=== PATIENT | male | born 1945 | race Hispanic/Latino ===

== ENCOUNTER 2018-01-15 13:58 | Observation (INO) | payer MEDICARE ==
[~2018-01-15] VITALS: Ht 162.6 cm; Wt 81.3 kg
[~2018-01-15 13:58] MED LIST: ABILIFY5 MG PO; ARICEPT10 M1 PO; ASPIRIN81 MG PO; B12 5,000 MCG1 EACH PO; BENEFIBER1 EAC1 PO; BUMETANIDE1 MG PO; CARVEDILOL3.125 MG PO; CARVEDILOL6.25 MG PO; DOCUSATE SODIU100 MG PO; FEROSUL325 MG PO; LISINOPRIL10 MG PO; POTASSIUM CHLO20 ME1; PRAVASTATIN SOD20 MG PO; QUETIAPINE FUMA25 MG PO; THIAMINE HCL100 MG PO; Z LOFIBRA PO; Z.0.COUMADIN5 MG PO; Z.0.HYDROCHLOROTHIA2 PO; Z.0.LISINOPRIL40 MG PO; Z.0.NAMENDA10 MG PO; Z.0.NORVASC10 MG PO; Z.0.PRAVASTATIN SOD4 PO; Z.0.PROZAC20 MG PO; Z.0.TOPROL XL50 MG PO; Z.0.WELLBUTRIN SR150 PO; vitamin B 12
[2018-01-15] MEDS ORDERED: ASPIRIN 81 MG CHEW TAB PO ONE ×2 (14:30→18:15)
[2018-01-15 15:27] LABS: CLARITY,URINE CLEAR (CLEAR); COLOR,URINE AMBER (YELLOW)
[2018-01-15 15:28] LABS: BILIRUBIN,URINE NEGATIVE (NEGATIVE); KETONES,URINE NEGATIVE (NEGATIVE); LEUKOCYTE ESTERASE ,URINE NEGATIVE (NEGATIVE); NITRITE,URINE NEGATIVE (NEGATIVE); PROTEIN,URINE DIPSTICK 2+ (NEGATIVE); URINE UROBILINOGEN 1 mg/dL (0.2 - 1)
--- NOTE | 2018-01-15 15:31 | Diagnostic Imaging Report ---
PROCEDURE: A single AP view of the chest. COMPARISON: 12/18/16 INDICATIONS: SOBTODAY FINDINGS: Lines/tubes: Stable left chest wall cardiac device. Lungs: Limited by body habitus and low lung volumes. Mild central vascular congestion. There is no evidence of pneumonia or pulmonary edema. Pleura: There is no pleural effusion or pneumothorax. Heart and mediastinum: The cardiac silhouette is enlarged. Median sternotomy wires. Bones: No acute bony abnormality. IMPRESSION: Enlarged cardiac silhouette and mild central vascular congestion. Dictated by: Edgar Hill M.D. on 01/15/2018 at 15:33 Electronically approved by: Edgar Hill M.D. on 01/15/2018 at 15:33
[2018-01-15 15:41] LABS: EPITHELIAL CELLS,URINE FEW /LPF; WBC,URINE (MAN) 21-50 /HPF (0-5)
[2018-01-15 15:42] LABS: BACTERIA,URINE FEW /HPF; HYALINE CASTS 0-1 (0-1); MUCUS,URINE MODERATE (RARE); RBC,URINE 0-5 /HPF (0-5)
[2018-01-15 16:13] LABS: HEMATOCRIT 38.5 % (38.2-49.6); HEMOGLOBIN 12.3 g/dL (14.0-18.0); MEAN CORPUSCULAR HEMOGLOBIN 24.7 pg (28-32); MEAN CORPUSCULAR HGB CONC 31.9 g/dL (31-35); MEAN CORPUSCULAR VOLUME 77.5 fL (81-99); RED BLOOD COUNT 4.97 x10e6/uL (4.3-5.7)
[2018-01-15 16:14] LABS: BASOPHILS % 0.4 % (0.0-1.0); EOSINOPHILS # (AUTO) 0.2 (0.0-0.4); EOSINOPHILS % 1.5 % (0.0-6.0); LYMPHOCYTES # (AUTO) 1.1 (1.0-3.2); LYMPHOCYTES % 11.6 % (18.0-39.1); MONOCYTES # (AUTO) 0.8 (0.2-0.8); MONOCYTES % 8.2 % (4.4-11.3); NEUTROPHILS # (AUTO) 7.6 (2.1-6.9); NEUTROPHILS % 78.1 % (38.7-80.0); PLATELET COUNT 251 x10e3/uL (140-360); RED CELL DISTRIBUTION WIDTH 16.5 % (11.7-14.4)
[2018-01-15 16:52] LABS: INR 1.32; PARTIAL THROMBOPLASTIN TIME 30.3 seconds (23.8-35.5); PROTHROMBIN TIME 15.4 seconds (11.9-14.5)
[2018-01-15 16:59] LABS: CREATINE KINASE MB 2.1 ng/mL (0-5.0)
[2018-01-15] MEDS ORDERED: FUROSEMIDE INJ 10 MG/ML 4 ML VIAL IV ONE (17:00)
[2018-01-15 17:01] LABS: POTASSIUM 3.8 mmol/L (3.5-5.1)
[2018-01-15 17:02] LABS: ALBUMIN 3.6 g/dL (3.5-5.0); ANION GAP 7.8 mmol/L (8-16); CALCIUM 8.8 mg/dL (8.4-10.2); CREATININE, SERUM 1.35 mg/dL (0.72-1.25)
[2018-01-15] MEDS ORDERED: CEFTRIAXONE SOD 1 GM VIAL IM ONE (18:30)
--- OUTSIDE RECORDS SUMMARY | 2018-01-15 19:09 | XMS REPORT ---
[facility] Address Unknown Phone Unavailable Care Team Providers Care Staff Nuclear Medicine Technologist Name Role Phone NIMO GUERRERO Unavailable Unavailable Problems This patient has no known problems. Allergies, Adverse Reactions, Alerts This patient has no known allergies or adverse reactions. Medications This patient has no known medications. Results Test Description Test Time Test Comments Text Results Atomic Results Result Comments CHEST SINGLE (PORTABLE) 2018-01-15 15:33:00 [place] [id number] Patient Name: ALKA DELGADO MR #: [id number] : 1945 Age/Sex : 72/M Req #: [id number] Adm Physician: Ordered by: CARMEN TAO FERRY [employer]MINAL AGENT Report #: [id number] Location: ER Room/Bed: Procedure: [id number] DX/CHEST SINGLE (PORTABLE) Exam Date: Exam Time: 1500 REPORT STATUS: Signed PROCEDURE: A single AP view of the chest. COMPARISON: 12/18/16 INDICATIONS: SOBTODAY FINDINGS: Lines/tubes: Stable left chest wall cardiac device. Lungs: Limited by body habitus and low lung volumes. Mild central vascular congestion. There is no evidence of pneumonia or pulmonary edema. Pleura: There is no pleural effusion or pneumothorax. Heart and mediastinum: The cardiac silhouette is enlarged. Median sternotomy wires. Bones: No acute bony abnormality. IMPRESSION: Enlarged cardiac silhouette and mild central vascular congestion. Dictated by: Edgar Leslie M.D. on 01/15/2018 at 15:33 Electronically approved by: Edgar Leslie M.D. on 01/15/2018 at 15:33 Dictated By: EDGAR LESLIE MD [id number] Transcribed By: SWATI on 01/15/18 1533 COPY TO: CARMEN TAO NP
[2018-01-15 20:00] VITALS: BP 167/90
[2018-01-15] MEDS ORDERED: CEFTRIAXONE SOD 1 GM VIAL IV ONE (20:15)
--- NOTE | 2018-01-15 20:57 | History and Physical ---
CHIEF COMPLAINT: Shortness of breath. HISTORY OF PRESENT ILLNESS: Mr. Coffman is a 72-year-old male, who presented to the emergency room with shortness of breath. He is a regular patient of Dr. Piero Collier and Dr. Méndez. Patient reports that she was feeling shortness of breath for last few days, progressively getting worse. Daughter reports that he has also noticed black stools. Patient has noticed that he was having black stools as well. He is on diuretics, which she ran out of Lasix for last 2 weeks and was unable to get filled. In the emergency room, patient's blood pressure was on the higher side and was started on antihypertensive medications. REVIEW OF SYSTEMS GENERAL: Denies any fever, chills. HEAD: Denies any head trauma. ENT: Denies any earache. CVS: Denies any chest pain. RESPIRATORY: Shortness of breath. GI: Denies any nausea, vomiting, black stools. REST OF THE REVIEW SYSTEMS: Negative except as in HPI. PAST MEDICAL HISTORY: Hypertension, hyperlipidemia, aortic stenosis, status post AVR twice, congestive heart failure, history of TIA, sick sinus, hypertension, aortic valve replacement twice, pacemaker placement. FAMILY AND SOCIAL HISTORY: He smoked for 40+ years, but he quit 20 years ago. He lives with his . Daughter is involved in the care. PHYSICAL EXAM VITAL SIGNS: Temperature 97, pulse of 97, blood pressure 171/109. HEENT: Head atraumatic, normocephalic. NECK: Supple. No JVD. Thyroid not enlarged. CHEST: Clear to auscultation bilaterally. No wheezing, no crackles. HEART: S1, S2 audible. ABDOMEN: Soft, nontender. EXTREMITIES: No clubbing, cyanosis or edema. NEUROLOGIC: Awake and alert. Following command. LABS: White count of 9.7, hemoglobin 12.3, platelets 251,000. Chemistry, sodium 143, potassium 3.8, chloride 116, bicarb 23, BUN 22, creatinine 1.35. Troponin 2 sets have been negative. BNP 1346. ASSESSMENT: Mr. Coffman is a 72-year-old male, who presented with shortness of breath. Current problems: 1. Shortness of breath is likely due to congestion, fluid overload. Patient has history of heart failure, has pacemaker and aortic valve replacement. 2. History of aortic valve replacement twice, currently stable. Follows up with Dr. Collier. Will consult Dr. Collier. 3. History of hypertension, uncontrolled. Patient reports he ran out of Lasix. Patient will be started on home medications. 4. Mild acute renal insufficiency, history of chronic kidney disease, currently stable. 5. Patient reports black stool and gastrointestinal bleed. Hemoglobin has been stable. Will consult gastrointestinal. 6. Urinalysis suggestive of urinary tract infection. Patient has been started on Rocephin, which will be continued. Job#: [id number] CQ
[2018-01-15 21:25] VITALS: BP 167/90
[2018-01-15] MEDS: LISINOPRIL 20 MG TAB PO SCH ×2 (21:53→21:54)
[2018-01-15] MEDS ORDERED: SODIUM CHLORIDE 0.9% 1000ML 2,000 ML ONE (22:43)
[2018-01-15 22:57] LABS: ANION GAP 18.4 mmol/L (8-16); CALCIUM 8.5 mg/dL (8.4-10.2); CREATININE, SERUM 1.4 mg/dL (0.72-1.25); MAGNESIUM 1.9 MG/DL (1.3-2.1); POTASSIUM 3.4 mmol/L (3.5-5.1)
[2018-01-15 22:58] LABS: CREATINE KINASE MB 2.3 ng/mL (0-5.0)
[2018-01-16] MEDS ORDERED: FLUOXETINE HCL 20 MG CAP PO SCH (09:00)
[2018-01-16] MEDS ORDERED: QUETIAPINE FUMARATE 25 MG TAB PO SCH (09:00)
[2018-01-16] MEDS ORDERED: ASPIRIN 81 MG CHEW TAB PO SCH (09:00)
[2018-01-16] MEDS ORDERED: ASPIRIN 325 MG TAB EC PO SCH (09:00)
[2018-01-16] MEDS ORDERED: LISINOPRIL 10 MG TAB PO SCH (09:00)
[2018-01-16] MEDS ORDERED: BUMETANIDE 1 MG TAB PO SCH (09:00)
--- NOTE | 2018-01-16 16:18 | Consultation ---
DATE OF CONSULTATION: January 15, 2018 GI CONSULT NOTE REFERRING PHYSICIAN: Анна Rodriguez MD REASON FOR CONSULT: Recent melena. HISTORY OF PRESENTING ILLNESS: [id number]-old male who speaks limited Czech. Most of my history derived through the patient's daughter, Renée at the bedside. She speaks Czech. She helped translating between me and patient. GI is being consulted because he reported passing black stool off and on for last 2 weeks. Couple of days ago, he noticed stool black and tarry that ran for about a day. But at the same time, he also admitted that due to some indigestion, he also used Pepto-Bismol. For last couple of days, he is having light brown stool. One week ago, he passed black tarry liquidy stool few times. Patient claims that at that time he was not taking Pepto-Bismol. He came to the hospital today due to easy fatigability and shortness of breath on minimal exertion. Hemoglobin noted 12.3 on admission. He has significant cardiac history that includes coronary artery disease, aortic valve replacement x2, first time he had a mechanical aortic valve that lasted for more than a decade. Few years ago, the mechanical valve was replaced with bioprosthetic valve. He is not on any anticoagulants. Denies any associated chest pain, palpitation. No cough or expectoration. He otherwise denies any nausea, vomiting, diarrhea, constipation, or any abdominal pain. No chronic use of any NSAIDs. No prior history of any peptic ulcer disease. No known history of any chronic liver disease. REVIEW OF SYSTEMS: Twelve-point system reviewed, symptomatology is limited as per HPI. PAST MEDICAL HISTORY: Hypertension, hyperlipidemia, aortic stenosis status post AVR x2, he has a bioprosthetic aortic valve. He is not on any anticoagulants. He also has congestive heart failure, history of TIA in the past. Sick sinus syndrome status post pacemaker. PAST SURGICAL HISTORY: Pacemaker placement. FAMILY HISTORY: Noncontributory. Negative for any GI or NEEDLE CONTROL CHENILLER malignancies. SOCIAL HISTORY: Smoked about 40+ years. Quit smoking 20 years ago. . Lives with his . ALLERGIES: NO KNOWN DRUG ALLERGIES. HOME MEDICATIONS: 1. Aspirin 81 mg daily. 2. Bumetanide 1 mg daily. 3. Carvedilol 6.25 mg twice daily. 4. Docusate 100 mg p.o. b.i.d. as needed. 5. Donepezil 10 mg daily. 6. Fluoxetine 20 mg daily. 7. Lisinopril 10 mg daily. 8. Potassium chloride 20 mEq daily. 9. Pravastatin 20 mg daily. 10. Seroquel 25 mg twice daily. 11. Vitamin B12 daily. INPATIENT MEDICATION LIST: Reviewed. PHYSICAL EXAMINATION: VITAL SIGNS: Temperature 98.2, pulse 87, respiration 18, blood pressure 143/89, oxygen saturation 100% on 2 liters of nasal cannula. GENERAL: Not in any acute distress. HEENT: Moist mucous membrane. Anicteric sclerae. CVS: S1 and S2. Regular with aortic valve click. LUNGS: Bilaterally grossly clear with occasional rales at bases. ABDOMEN: Soft, nondistended, nontender. No palpable mass or hernia. Positive bowel sounds. EXTREMITIES: Warm. Trace leg edema. LABS: WBC 9.79, hemoglobin 12.3, hematocrit 38.5, MCV 77.5, platelet count 251,000. Sodium 143, potassium 3.8, chloride 116, bicarb 23, BUN 22, creatinine 1.35. Glucose 85. Liver enzymes normal. Troponins negative. PT 15.4, INR 1.32, PTT 30.3. Chest x-ray showed enlarged cardiac silhouette and mild central vascular congestion. IMPRESSION: Reported dark stool, not witnessed. Hemoglobin is stable. He also used Pepto-Bismol that is well known to turn stool darker, often black color. PLAN: Agree for the cardiology consult to evaluate shortness of breath on minimal exertion. I do not suspect any active GI bleeding. Check stool for occult blood. Monitor stool while being in the hospital. Patient is not anemic. Rest of the care as per primary team. Will continue to follow him clinically. I thank Dr. Rodriguez for allowing me to participate in the care of this patient. Job#: [id number]
--- NOTE | 2018-01-20 20:01 | Discharge Summary ---
SUMMARY ADMISSION HISTORY AND HOSPITAL COURSE: Mr. Coffman is a 72-year-old male who presented to the emergency room with the complaint of shortness of breath. The patient has a history of aortic valve replacement. He also was complaining of black stools. The patient was admitted by me, and cardiology and GI was consulted. Dr. Linton admitted the patient from GI. Overnight, the patient had episodes of ventricular tachycardia. The patient had a code blue. The ER doctor was called, and the patient was initially and successfully intubated, but then intubated. The patient never regained a pulse and could not survive the code. SHANEL FERNANDEZ MD Job#: [id number] [place]
== END 2018-01-16 03:23 | disposition expired ==
LOC: ER 14:05 → ERHOLD 19:06 → IMCU 19:07
PROVIDERS: ADMIT Internal Medicine; ATTEND Internal Medicine
DX: I11.0 Hypertensive heart disease with heart failure (principal); I50.33 Acute on chronic diastolic (congestive) heart failure; N30.00 Acute cystitis without hematuria; E78.5 Hyperlipidemia, unspecified; R19.5 Other fecal abnormalities; Z95.2 Presence of prosthetic heart valve; Z87.891 Personal history of nicotine dependence; N28.9 Disorder of kidney and ureter, unspecified; K92.2 Gastrointestinal hemorrhage, unspecified; G45.9 Transient cerebral ischemic attack, unspecified; Z95.0 Presence of cardiac pacemaker
CPT/HCPCS: 36415; 71045; 80048; 80053; 81001; 82550; 82553; 83735; 83880; 84484; 85025; 85610; 85730; 86850; 86900; 92950; 93005; 99284; G0378 ×2; J0696; J1940; J7030